=== PATIENT | male | born 1995 | race Caucasian/White ===

== ENCOUNTER 2017-09-05 13:51 | Emergency (ER) | payer MEDICAID ==
[~2017-09-05] VITALS: Ht 185.4 cm; Wt 82.0 kg
[~2017-09-05 13:51] MED LIST: DIPH25CA83 PO; IBUP-1986 PO; PRED50TA PO
[2017-09-05 14:13] VITALS: BP 138/85
[2017-09-05] MEDS ORDERED: HYDROcodone/acetaminophen 5mg/325mg tablet PO ONE (15:05)
[2017-09-05] MEDS ORDERED: BUPIVAcaine/PF 2.5 mg/ml (0.25%) 30ml vial IJ ONE (15:35)
[2017-09-05] MEDS ORDERED: TETanus/Pertussis (Acell)/Diphther VAC/PF (Tdap-Adult) 0.5ml syringe IM ONE (15:45)
[2017-09-05] MEDS ORDERED: AMOX-422 PO (16:29)
[2017-09-05] MEDS ORDERED: IBUP-1984 PO (16:29)
== END 2017-09-05 16:40 | disposition home or self-care (01) ==
LOC: ER 13:51
DX: S61.411A Laceration without foreign body of right hand, initial encounter (principal); Z79.899 Other long term (current) drug therapy; W54.0XXA Bitten by dog, initial encounter; Y93.89 Activity, other specified; Y92.89 Other specified places as the place of occurrence of the external cause; Y99.8 Other external cause status
CPT/HCPCS: 12001; 73130; 90471; 90715; 99284; A6449; J3490

== ENCOUNTER 2018-06-08 03:03 | Emergency (ER) | payer MEDICAID ==
[~2018-06-08] VITALS: Ht 182.9 cm; Wt 77.3 kg
[2018-06-08] MEDS ORDERED: normal saline 1000ml 1,000 ML IV ONE ×2 (03:20→05:30)
[2018-06-08] MEDS ORDERED: proCHLORperazine 10 MG/2 ml inj IV ONE (03:20)
[2018-06-08] MEDS ORDERED: ondansetron/PF 4mg/2ml inj IV ONE (03:20)
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
[2018-06-08 05:05] VITALS: BP 117/58
--- NOTE | 2018-06-08 05:06 | NUR ---
pt asleep, RR WNLs
--- NOTE | 2018-06-08 05:49 | NUR ---
pt went to [place]
--- NOTE | 2018-06-08 06:03 | NUR ---
when he came back from [place] he was more awake, able to void into a urinal with encouragement, he would drift off to sleep easily. Covered him back up, he states that he is thirsty, gave him a cup of water that he drank.
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
[2018-06-08 06:36] LABS: URINE AMPHETAMINE SCREEN NEGATIVE (Neg); URINE BARBITUATE SCREEN NEGATIVE (Neg); URINE BENZODIAZEPINES SCREEN NEGATIVE (Neg); URINE CANNABINOID SCREEN NEGATIVE (Neg); URINE COCAINE SCREEN NEGATIVE (Neg); URINE METHADONE SCREEN NEGATIVE (Neg); URINE OPIATE SCREEN NEGATIVE (Neg); URINE PHENCYCLIDINE SCREEN NEGATIVE (Neg)
== END 2018-06-08 06:38 | disposition left against medical advice (07) ==
LOC: ER 03:03
DX: S06.0X0A Concussion without loss of consciousness, initial encounter (principal); F10.920 Alcohol use, unspecified with intoxication, uncomplicated; X58.XXXA Exposure to other specified factors, initial encounter; Y93.89 Activity, other specified; Y92.89 Other specified places as the place of occurrence of the external cause; Y99.8 Other external cause status
CPT/HCPCS: 36415; 70450; 80305; 80320; 96374; 96375; 99284; J0780; J2405; J7030

== ENCOUNTER 2019-11-11 19:51 | Emergency (ER) | payer MEDICAID ==
[~2019-11-11] VITALS: Ht 185.4 cm; Wt 95.5 kg
--- NOTE | 2019-11-11 19:58 | NUR ---
Please call Amy for a ride [phone]
[2019-11-11] MEDS ORDERED: ondansetron/PF 4mg/2ml inj IV ONE (21:55)
[2019-11-11] MEDS ORDERED: morphine 4 MG/ML inj SYRINge IV ONE (21:55)
[2019-11-11 22:54] LABS: BASOPHILS % (AUTO) 0.3 % (0-1); EOSINOPHILS # (AUTO) 0.1 X10'3 (0-0.9); EOSINOPHILS % (AUTO) 0.6 % (0-6); HEMATOCRIT 45.4 % (42.0-52.0); HEMOGLOBIN 15.4 g/dl (14.0-17.9); LYMPHOCYTES % (AUTO) 22.1 % (21-51); MEAN CORPUSCULAR HEMOGLOBIN 29.5 PG (27.0-31.0); MEAN CORPUSCULAR HGB CONC 33.8 g/dL (33.0-36.5); MEAN CORPUSCULAR VOLUME 87.3 FL (78-98); MEAN PLATELET VOLUME 6.5 FL (7.4-10.4); MONOCYTES # (AUTO) 0.7 X10'3 (0-0.9); MONOCYTES % (AUTO) 8.1 % (2-12); NEUTROPHILS # (AUTO) 6.1 X10'3 (1.8-7.7); NEUTROPHILS % (AUTO) 68.9 % (42-75); PLATELET COUNT 277 X10'3 (140-440); RED CELL DISTRIBUTION WIDTH 13.7 % (11.5-14.5); WHITE BLOOD COUNT 8.9 X10'3 (4.5-11.0)
[2019-11-11 23:03] LABS: PARTIAL THROMBOPLASTIN TIME 27 SECONDS (22-32)
[2019-11-11 23:09] LABS: ALANINE AMINOTRANSFERASE 24 U/L (12-78); ALBUMIN 3.9 G/DL (3.4-5.0); ALBUMIN/GLOBULIN RATIO 1.1 (1.1-1.5); ALKALINE PHOSPHATASE 62 IU/L (46-116); ANION GAP 9 (8-16); ASPARTATE AMINO TRANSFERASE 27 U/L (10-37); BILIRUBIN,TOTAL 0.3 MG/DL (0.1-1.0); BLOOD UREA NITROGEN 8 MG/DL (7-18); BUN/CREATININE RATIO 8.3 (5.4-32.0); CALCIUM 7.8 MG/DL (8.5-10.1); CHLORIDE 108 MMOL/L (99-107); CREATININE 0.96 MG/DL (0.60-1.10); GLUCOSE 95 MG/DL (70-104); POTASSIUM 4.1 MMOL/L (3.5-5.1); SODIUM 143 MMOL/L (135-145); TOTAL CARBON DIOXIDE 26.1 MMOL/L (24-32); TOTAL PROTEIN 7.6 G/DL (6.4-8.2); eGFR > 90 ML/MIN
[2019-11-11 23:59] VITALS: BP 112/72
== END 2019-11-12 00:01 | disposition home or self-care (01) ==
LOC: ER 19:51
DX: S30.0XXA Contusion of lower back and pelvis, initial encounter (principal); F12.90 Cannabis use, unspecified, uncomplicated; M54.9 Dorsalgia, unspecified; Z79.899 Other long term (current) drug therapy; Y93.39 Activity, other involving climbing, rappelling and jumping off; Y93.89 Activity, other specified; Y92.89 Other specified places as the place of occurrence of the external cause; Y99.8 Other external cause status
CPT/HCPCS: 36415; 72131; 80053; 83605; 84145; 85025; 85610; 85730; 87040; 96374; 96375; 99285; J2270; J2405

== ENCOUNTER 2021-01-29 19:21 | Emergency (ER) | payer MEDICAID ==
[~2021-01-29] VITALS: Ht 185.4 cm; Wt 112.0 kg
[2021-01-29] MEDS ORDERED: fentaNYL/PF 50MCG/1 ML 2ML syringe IV ONE (19:30)
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
[2021-01-29] MEDS ORDERED: NO HOME MEDS (20:01)
[2021-01-29 20:16] LABS: BASOPHILS % (AUTO) 0.2 % (0-1); EOSINOPHILS # (AUTO) 0.1 X10'3 (0-0.9); EOSINOPHILS % (AUTO) 1.2 % (0-6); HEMATOCRIT 45.1 % (42.0-52.0); LYMPHOCYTES # (AUTO) 1.7 X10'3 (1.1-4.8); LYMPHOCYTES % (AUTO) 22.4 % (21-51); MEAN CORPUSCULAR HEMOGLOBIN 28.7 PG (27.0-31.0); MEAN CORPUSCULAR HGB CONC 33.3 g/dL (33.0-36.5); MEAN CORPUSCULAR VOLUME 86.1 FL (78-98); MEAN PLATELET VOLUME 6.7 FL (7.4-10.4); MONOCYTES % (AUTO) 13.4 % (2-12); NEUTROPHILS # (AUTO) 4.8 X10'3 (1.8-7.7); NEUTROPHILS % (AUTO) 62.8 % (42-75); PLATELET COUNT 266 X10'3 (140-440); RED BLOOD COUNT 5.24 X10'6 (4.70-6.10); RED CELL DISTRIBUTION WIDTH 13.7 % (11.5-14.5); WHITE BLOOD COUNT 7.6 X10'3 (4.5-11.0)
[2021-01-29 20:28] LABS: ALANINE AMINOTRANSFERASE 27 U/L (12-78); ALBUMIN 3.7 G/DL (3.4-5.0); ALBUMIN/GLOBULIN RATIO 0.9 (1.1-1.5); ALKALINE PHOSPHATASE 100 IU/L (46-116); ANION GAP 11 (8-16); ASPARTATE AMINO TRANSFERASE 22 U/L (10-37); BILIRUBIN,TOTAL 0.4 MG/DL (0.1-1.0); BLOOD UREA NITROGEN 12 MG/DL (7-18); BUN/CREATININE RATIO 12.9 (5.4-32.0); CALCIUM 8.8 MG/DL (8.5-10.1); CHLORIDE 104 MMOL/L (99-107); CREATINE KINASE 233 U/L (39-308); CREATININE 0.93 MG/DL (0.60-1.10); GLUCOSE 101 MG/DL (70-104); POTASSIUM 3.9 MMOL/L (3.5-5.1); SODIUM 141 MMOL/L (135-145); TOTAL CARBON DIOXIDE 26.5 MMOL/L (24-32); TOTAL PROTEIN 7.6 G/DL (6.4-8.2); eGFR > 90 ML/MIN
[2021-01-29] MEDS ORDERED: ondansetron/PF 4mg/2ml inj IV ONE (20:30)
[2021-01-29] MEDS ORDERED: morphine 2 MG/ML inj. syringe IV PRN (20:35)
[2021-01-29] MEDS: morphine 2 MG/ML inj. syringe IV PRN ×3 (21:08→22:57)
[2021-01-29] MEDS ORDERED: magnesium hydroxide 30ml (MOM) UD suspension PO PRN (23:10)
[2021-01-29] MEDS ORDERED: ondansetron/PF 4mg/2ml inj IV PRN (23:10)
[2021-01-29] MEDS ORDERED: mag hydrox/Alum hydrox/simeth 30ml oral suspension PO PRN (23:10)
[2021-01-29] MEDS ORDERED: acetaminophen 325mg tablet PO PRN (23:10)
[2021-01-30] MEDS: morphine 2 MG/ML inj. syringe IV PRN ×2 (04:57→12:09)
[2021-01-30 05:53] VITALS: BP 117/82
[2021-01-30] MEDS ORDERED: docusate sod 100mg capsule PO SCH (08:00)
[2021-01-30] MEDS ORDERED: HYDR-3972 PO (10:35)
== END 2021-01-30 14:40 | disposition home or self-care (01) ==
LOC: ER 19:22 → UNDOADMIN 23:08 → ED HOLD 23:08 → UNDOADMIN 23:10 → ER 01-30 14:40
DX: S97.81XA Crushing injury of right foot, initial encounter (principal); M79.671 Pain in right foot; F12.90 Cannabis use, unspecified, uncomplicated; Z72.89 Other problems related to lifestyle; X58.XXXA Exposure to other specified factors, initial encounter; Y93.89 Activity, other specified; Y92.89 Other specified places as the place of occurrence of the external cause; Y99.8 Other external cause status
CPT/HCPCS: 36415; 73630; 73700; 80053; 82550; 83605; 85025; 86885; 86900; 86901; 96374; 96375; 96376; 99285; J2270; J2405; J3010; G0378